=== PATIENT | female | born 1980 | race Hispanic/Latino ===

== ENCOUNTER 2018-10-17 13:17 | Emergency (ER) | payer BC ==
--- NOTE | 2018-10-17 14:42 | EDPHYS ---
Physician Documentation [facility] Name: Nahomy Trevino Age: 38 yrs Sex: Female : 1980 Arrival Date: 10/17/2018 Time: 13:19 Bed 10 Private MD: ED Physician Cezar Boykin HPI: 10/17 14:39 This 38 yrs old Female presents to ER via Ambulatory with complaints of Fever, kb Sore Throat, Ear Pain. 14:40 The patient presents with sore throat. The patient describes throat pain as constant. kb Onset: The symptoms/episode began/occurred last night. Severity of symptoms: At their worst the symptoms were moderate, in the emergency department the symptoms are unchanged. Modifying factors: The symptoms are alleviated by nothing, the symptoms are aggravated by swallowing, Patient's oral intake status: good Denies contact with similarly ill indivduals. Associated signs and symptoms: Pertinent positives: chills, earache, Sore throat Pertinent negatives chest pain, cough, diarrhea, dysphagia, fever, flu-like symptoms, headache, nausea, rhinorrhea, shortness of breath, vomiting. The patient has not experienced similar symptoms in the past. The patient has not recently seen a physician. 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 - Social history:: Smoking status: Patient/guardian denies using tobacco, Patient uses alcohol. - Ebola Screening: : Patient negative for fever greater than or equal to 101.5 degrees Fahrenheit, and additional compatible Ebola Virus Disease symptoms Patient denies exposure to infectious person Patient denies travel to an Ebola-affected area in the 21 days before illness onset. ROS: 14:41 Neck: Negative for injury, pain, and swelling, Cardiovascular: Negative for chest pain, kb palpitations, and edema, Respiratory: Negative for shortness of breath, cough, wheezing, and pleuritic chest pain, Abdomen/GI: Negative for abdominal pain, nausea, vomiting, diarrhea, and constipation, MS/Extremity: Negative for injury and deformity, Skin: Negative for injury, rash, and discoloration, Neuro: Negative for headache, weakness, numbness, tingling, and seizure. 14:41 Constitutional: Positive for chills, malaise, Negative for body aches, fatigue, fever, poor PO intake, weight loss. 14:41 ENT: Positive for ear pain, sore throat. Exam: 14:41 Constitutional: This is a well developed, well nourished patient who is awake, alert, kb and in no acute distress. Head/Face: Normocephalic, atraumatic. ENT: Nares patent. No nasal discharge, no septal abnormalities noted. Tympanic membranes are normal and external auditory canals are clear. Oropharynx with no redness, swelling, or masses, exudates, or evidence of obstruction, uvula midline. Mucous membranes moist. Neck: Trachea midline, no thyromegaly or masses palpated, and no cervical lymphadenopathy. Supple, full range of motion without nuchal rigidity, or vertebral point tenderness. No Meningismus. Chest/axilla: Normal chest wall appearance and motion. Nontender with no deformity. No lesions are appreciated. Cardiovascular: Regular rate and rhythm with a normal S1 and S2. No gallops, murmurs, or rubs. Normal PMI, no JVD. No pulse deficits. Respiratory: Lungs have equal breath sounds bilaterally, clear to auscultation and percussion. No rales, rhonchi or wheezes noted. No increased work of breathing, no retractions or nasal flaring. Abdomen/GI: Soft, non-tender, with normal bowel sounds. No distension or tympany. No guarding or rebound. No evidence of tenderness throughout. Skin: Warm, dry with normal turgor. Normal color with no rashes, no lesions, and no evidence of cellulitis. MS/ Extremity: Pulses equal, no cyanosis. Neurovascular intact. Full, normal range of motion. Neuro: Awake and alert, GCS 15, oriented to person, place, time, and situation. Cranial nerves II-XII grossly intact. Motor strength 5/5 in all extremities. Sensory grossly intact. Cerebellar exam normal. Normal gait. Vital Signs: 13:32 BP 124 / 85; Pulse 89; Resp 18; Temp 97.8(TE); Pulse Ox 99% on R/A; Weight 52.16 kg; hj Height 5 ft. 2 in. (157.48 cm); Pain 05/27; 13:32 Body Mass Index 21.03 (52.16 kg, 157.48 cm) hj MDM: 14:14 Patient medically screened. kb 14:40 Data reviewed: vital signs, nurses notes. Data interpreted: Pulse oximetry: on room air kb is 99 %. Interpretation: normal. Counseling: I had a detailed discussion with the patient and/or guardian regarding: the historical points, exam findings, and any diagnostic results supporting the discharge/admit diagnosis, lab results, the need for outpatient follow up, a family practitioner, to return to the emergency department if symptoms worsen or persist or if there are any questions or concerns that arise at home. 10/17 13:32 Order name: Flu; Complete Time: 14:15 kb 10/17 13:32 Order name: Strep; Complete Time: 14:15 kb 10/17 14:15 Order name: Throat Culture EDMS Administered Medications: No medications were administered Disposition: 10/17/18 14:42 Discharged to Home. Impression: Acute pharyngitis. - Condition is Stable. - Discharge Instructions: Pharyngitis, [id number], Viral Respiratory Infection, [id number]. - Medication Reconciliation Form, Thank You Letter, Antibiotic Education, Prescription Opioid Use, Work release form form. - Follow up: Emergency Department; When: As needed; Reason: Worsening of condition. Follow up: Private Physician; When: 2 - 3 days; Reason: Recheck today's complaints, Continuance of care, Re-evaluation by your physician. Addendum: 10/18/2018 16:44 Co-signature as Attending Physician, Cezar Boykin MD I agree with the assessment and k dr plan of care. Signatures: Dispatcher [employer] EDID June Daniels, BILL SORTER-C BILL SORTER-CkCezar Salas MD MD [facility] Charlotte Hill, ELOISE RN Jeff Raza, ELOISE RN Corrections: (The following items were deleted from the chart) 10/17 14:50 14:42 10/17/2018 14:42 Discharged to Home. Impression: Acute pharyngitis. Condition is iw Stable. Forms are Medication Reconciliation Form, Thank You Letter, Antibiotic Education, Prescription Opioid Use. Follow up: Emergency Department; When: As needed; Reason: Worsening of condition. Follow up: Private Physician; When: 2 - 3 days; Reason: Recheck today's complaints, Continuance of care, Re-evaluation by your physician. kb
--- NOTE | 2018-10-17 14:42 | ER ---
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 Transition of care: patient was not received from another setting of care. Onset of symptoms was October 17, 2018. Risk Assessment: Do you want to hurt yourself or someone else? Patient reports no desire to harm self or others. Initial Sepsis Screen: Does the patient meet any 2 criteria? Yes Does the patient have a suspected source of infection? No. Patient's initial sepsis screen is negative. Care prior to arrival: None. 13:30 Method Of Arrival: Ambulatory 13:30 Acuity: MARK 4 hj Triage Assessment: 13:31 General: Appears in no apparent distress. uncomfortable, Behavior is calm, cooperative, hj appropriate for age. Pain: Complains of pain in throat, ear, head Pain currently is 8 out of 10 on a pain scale. EENT: Reports pain when swallowing. 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 - Social history:: Smoking status: Patient/guardian denies using tobacco, Patient uses alcohol. - Ebola Screening: : Patient negative for fever greater than or equal to 101.5 degrees Fahrenheit, and additional compatible Ebola Virus Disease symptoms Patient denies exposure to infectious person Patient denies travel to an Ebola-affected area in the 21 days before illness onset. Screenin:31 Abuse screen: Denies threats or abuse. Denies injuries from another. Nutritional hj screening: No deficits noted. Tuberculosis screening: No symptoms or risk factors identified. Fall Risk None identified. Assessment: 13:32 Respiratory: Airway is patent Respiratory effort is even, unlabored, Respiratory hj pattern is regular, symmetrical, 13:35 EENT: Throat. hj Vital Signs: 13:32 BP 124 / 85; Pulse 89; Resp 18; Temp 97.8(TE); Pulse Ox 99% on R/A; Weight 52.16 kg; hj Height 5 ft. 2 in. (157.48 cm); Pain 8/10; 13:32 Body Mass Index 21.03 (52.16 kg, 157.48 cm) ED Course: 13:19 Patient arrived in ED. rg4 13:30 Triage completed. hj 13:32 June Daniels FNP-C is PHCP. kb 13:32 Cezar Boykin MD is Attending Physician. kb 13:32 Arm band placed on right wrist. hj 13:34 Strep Sent. hj 13:34 Flu Sent. hj 13:35 Patient has correct armband on for positive identification. Bed in low position. Call light in reach. Side rails up X 1. 14:08 Charlotte Hill, RN is Primary Nurse. iw Administered Medications: No medications were administered Outcome: 14:42 Discharge ordered by . kb 14:50 Patient left the ED. iw Signatures: June Daniels FNP-C FNP-Charlotte Gonzalez, RN RN iw Jeff Raza RN RN Nazia Barroso rg4 Corrections: (The following items were deleted from the chart) 13:35 13:32 Pulse 89bpm; Resp 18bpm; Pulse Ox 99% RA; Temp 97.8F Temporal; 52.16 kg; Height 5 hj ft. 2 in.; BMI: 21.0; Pain 8/10;
== END 2018-10-17 14:50 | disposition home or self-care (01) ==
LOC: ER 13:17
DX: J02.9 Acute pharyngitis, unspecified (principal)
CPT/HCPCS: 87070; 87081; 87804; 99282

== ENCOUNTER 2022-04-27 22:48 | Emergency (ER) | payer BC ==
--- NOTE | 2022-04-28 00:59 | ER ---
Nurse's Notes [facility] [place] [facility] Name: Nahomy Trevino Age: 41 yrs Sex: Female : 1980 Arrival Date: 04/27/2022 Time: 22:52 Bed Waiting Private MD: Diagnosis: Vital Signs: 04/28 00:19 BP 111 / 64; Pulse 115; Resp 19; Pulse Ox 100% on R/A; kd3 ED Course: 04/27 22:52 Patient arrived in ED. [id number] Administered Medications: No medications were administered Outcome: 04/28 00:59 Patient left the ED. kd3 Signatures: Zeinab Chambers Kyli RN RN kd3
[2022-04-28 01:18] VITALS: BP 111/64; O2SAT 100
--- OUTSIDE RECORDS SUMMARY | 2022-05-07 00:56 | XMS REPORT | Continuity of Care Document ---
:1980 Author Organization [facility] t Address [address] [place] [address] Care Team Providers Name Role Phone PAXTON BERGERON Primary Care Physician Unavailable CHARLEE MORALES Attending Clinician Unavailable Charlee Jacome Attending Clinician Celina NAVAS, T Attending Clinician Unavailable Raghu TUCKER Attending Clinician Unavailable Payers Payer Name Policy Type Policy Number Effective Date Expiration Date [facility] - [id number] 2021 00:00:00 OUT OF STATE Problems Condition Condition Condition Status Onset Resolution Last Treating Co mments Source Name Details Category Date Date Treatment Clinician Date Pap smear Pap smear Disease Active Overview: Univers of cervix of cervix 2-03 Formattin i ty of unsatisfac unsatisfac 00:00: g of this [place] tor tory 00 note Medical might be Branch different from the original. No ECC on pap; Repeat pap postpartu m Urinary Urinary Disease Active Univers frequency frequency 1-23 ity of 00:00: [place] 00 Medical Branch Encounter Encounter Disease Active Overview: Univers for for 5-21 Formattin ity of insertion insertion 00:00: g of this [place] or removal or removal 00 note Me dical of of might be Branch intrauteri intrauteri different ne ne from the contracept contracept original. jayson device jayson device Inserted 2012 Allergies, Adverse Reactions, Alerts Allergy Allergy Status Severity Reaction(s) Onset Inactive Treating Comm ents Source Name Type Date Date Clinician NO KNOWN Drug Active Univers ALLERGIE Class ity of S [facility] Social History Social Habit Start Date Stop Date Quantity Comments Source History SDOH University o f Alcohol Frequency [place] M edical Branch History SDOH University o f Alcohol Std [place] Medical Drinks Branch History SDOH University o f Alcohol Binge [place] Medic al Branch Exposure to 2022-04-23 2022-05-03 Not sure [facility]2 00:00:00 17:45:00 [facility] (event) Branch Alcohol intake 2022-04-28 2022-04-28 Current drinker Unive rsity of 00:00:00 00:00:00 of alcohol [facility] (finding) [place] Tobacco use and 2013-11-09 2013-11-09 Smokeless tobacco Un iversity of exposure 00:00:00 00:00:00 non-user [facility] Alcohol Comment 2013-11-09 2013-11-09 on occasion Universi ty of 00:00:00 00:00:00 [facility] Sex Assigned At [birth year] Universit y of 00:00:00 00:00:00 [facility] Smoking Status Start Date Stop Date Source Never smoked tobacco [facility] Medications Ordered Filled Start Stop Current Ordering Indication Dosage Frequency Signature Comments Components Source Medication Medication Date Date Medication? Clinician (SIG) Name Name ketorolac No 15mg 15 mg, Unive rs (TORADOL) 05-04 Slow IV ity of injection 04:30: 03:29 Push, [place] 15 mg 00 :00 ONCE, 1 Medical dose, On Branch [place] 05/03/22 at 2330, HECTOR NaCl 0.9% No 1000mL at 999 Uni vers (NS) bolus 05-04 mL/hr, ity of infusion 02:15: 02:51 1,000 mL, Ej as 1,000 mL 00 :00 IV Medical Infusion, [place] ONCE, 1 dose, On 05/03/22 at 2115, STAT acetaminoph No 1000mg 1,000 mg, Univers en 05-04 Oral, ity of (TYLENOL) 02:15: 02:30 ONCE, 1 [place] tablet 00 :00 dose, On Medical 1,000 mg [place] 05/03/22 at 2115, HECTOR levoFLOXaci 2021- No 500mg 500 mg, IV Univers n in D5W 05-04 Piggyback, ity of (LEVAQUIN) 02:15: 03:27 ONCE, 1 Ej as 500 mg/100 00 :00 dose, On Medic al mL [place] Piggyback 05/03/22 at 500 mg 2114, Administer over 60 Minutes, 100 mL
R maritza for Anti-Infec tive: Documented Infection< br>Documen sabrina Infection Site: Abdominal< br>Duratio n of Therapy: 7 days iopamidol 2021- No [id number] 65mL 65 mL, Univers (ISOVUE 05-04 Intravenou ity o f 370-500 mL) 00:48: 01:00 s, ONCE, 1 [place] injection 00 :00 dose, On Medica l 65 mL [place] Branch 05/03/22 at 2000, Routine NaCl 0.9% 2021- No 1000mL at 999 Uni vers (NS) bolus 05-04 mL/hr, ity of infusion 00:15: 01:46 1,000 mL, Ej as 1,000 mL 00 :00 IV Medical Infusion, Branch ONCE, 1 dose, On 05/03/22 at 1914, STAT ondansetron No 4mg 4 mg, Slow Univers (ZOFRAN 05-04 IV Push, ity of (PF)) 00:15: 23:31 ONCE, 1 [place] injection 4 00 :00 dose, On Medi doug mg [place] 05/03/22 at 191, HECTOR ondansetron 0 Yes [id number] 4mg Take 1 Univers 4 mg 7-17 tablet by ity of disintegrat 00:00: mouth [place] ing tablet 00 every 8 Medica l (eight) Branch hours as needed for Nausea and Vomiting (N/V). ibuprofen 0 Yes [id number] 600mg Take 1 U nivers 600 mg 7-17 tablet by ity of tablet 00:00: mouth [place] 00 every 6 Medical (six) Branch hours as needed for Pain (scale 4-6). levoFLOXaci 0 2021- Yes [id number] 750mg Take 1 Univers n 7-17 07-25 tablet by ity of (LEVAQUIN) 00:00: 04:59 mouth [place] 750 mg 00 :00 every 24 Medical tablet (twenty-fo Branch ur) hours for 7 days. benzonatate Yes [id number] 100mg Take 1 Univers 100 mg 1-03 capsule by ity of capsule 00:00: mouth 3 [place] 00 (three) Medical times Branch daily as needed for Cough. ondansetron 0 Yes [id number] 4mg Take 1 Univers (ZOFRAN) 4 1-03 tablet by ity of mg tablet 00:00: mouth [place] 00 every 8 Medical (eight) Branch hours as needed for Nausea and Vomiting (N/V) for up to 15 doses. benzonatate Yes [id number] 100mg Take 1 Univers 100 mg 1-03 capsule by ity of capsule 00:00: mouth 3 [place] 00 (three) Medical times Branch daily as needed for Cough. ondansetron Yes [id number] 4mg Take 1 Univers (ZOFRAN) 4 1-03 tablet by ity of mg tablet 00:00: mouth [place] 00 every 8 Medical (eight) Branch hours as needed for Nausea and Vomiting (N/V) for up to 15 doses. ibuprofen 2021- No [id number] 600mg Take 1 Univers 600 mg 1-03 02-03 tablet by ity of tablet 00:00: 05:59 mouth [place] 00 :00 every 6 Medical (six) Branch hours as needed for Pain (scale 4-6) for up to 30 days. Immunizations Ordered Filled Immunization Date Status Comments [facility] e Immunization Name Name TDAP 2011-04-30 Completed University 00:00:00 [facility] TDAP 2011-04-30 Completed [facility] 00:00:00 [facility] Vital Signs Vital Name Observation Time Observation Value Comments Source Systolic blood 2022-05-04 93 mm[Hg] erp aware, pt University o f pressure 04:58:00 asymptomatic, [facility] stable for DC Branch Diastolic blood 2022-05-04 57 mm[Hg] erp aware, pt University of pressure 04:58:00 asymptomatic, [facility] stable for DC Branch Heart rate 2022-05-04 83 /min University 04:58:00 [facility] Respiratory rate 2022-05-04 18 /min [facility] 04:58:00 [facility] Oxygen saturation 2022-05-04 98 /min [facility] in Arterial blood 04:58:00 [facility] by Pulse oximetry [place] Body temperature 2022-05-03 37.44 Sharron [facility] 22:49:00 [facility] Body height 2022-05-03 154.9 cm [facility] 22:49:00 [facility] Body weight 2022-05-03 59.421 kg [facility] 22:49:00 [facility] BMI 2022-05-03 24.75 kg/m2 [facility] 22:49:00 [facility] Procedures Procedure Date / Time Performing Clinician Source Performed URINE DRUG (IMMUNOASSAY) 2022-05-04 02:51:[address] [facility] SCREEN COVID-19 (ID NOW RAPID 2022-05-04 01:18:00 Jackelyn Morales [facility] TESTING) [facility] CT ABDOMEN PELVIS W 2022-05-04 00:49:00 Jackelyn Morales [facility] CONTRAST [facility] POCT TEST 2022-05-03 23:40:00 Jackelyn Morales [facility] LIPASE 2022-05-03 23:29:00 Jackelyn Morales [facility] MAGNESIUM 2022-05-03 23:29:00 Jackelyn Morales [facility] COMP. METABOLIC PANEL 2022-05-03 23:29:00 Jackelyn Morales [facility] ([id number]) [facility] CBC WITH DIFF 2022-05-03 23:29:00 Jackelyn Morales [facility] URINALYSIS 2022-05-03 23:29:00 Jackelyn Morales [facility] CONSENT/REFUSAL FOR 2022-05-03 22:32:55 Doctor Unassigned, No Un [facility] DIAGNOSIS AND TREATMENT Name Medical Branch Encounters Start End Encounter Admission Attending Care Care Encounter Source Date/Time Date/Time Type Type Clinicians Facility Department ID 2022-05-03 2022-05-04 Emergency X Jackelyn MORALES [facility] ERT [id number] Univers 17:51:00 00:44:00 ity [facility] 2022-05-03 2022-05-04 Emergency [place], Jackelyn [facility] [id number] Univers 17:51:00 00:44:00 Charlee BEBE [id number] i ty [facility] [id number] [place] [id number] [facility] 084 Branch 2021-10-21 2021-10-21 Letter AGUSTINA Patrick [id number] Univers 00:00:00 00:00:00 (Out) Minna Barakat AYSHA [id number] it y [facility] [id number] Ej as [id number] [facility] 019 Branch 2021-10-20 2021-10-20 Emergency X CAITLIN, [facility] ERT [id number] Univers 18:56:00 19:52:00 MAGGIE [facility] Results Test Description Test Time Test Comments Results Result Comments Source POCT TEST 2022-05-03 23:40:00 Test Item Value Reference Range Interpretation Comme nts POCT PREG (test code = 1605) negative On board controls acceptable with C Line (test code = 3574) present POCT PREG LOT # (test code = 3575) [id number] POCT PREG TEST DATE (test code = 3576) 08/17/2023 Lab Interpretation (test code = 11660-5) Normal [facility]
== END 2022-04-28 00:59 | disposition left against medical advice (07) ==
LOC: ER 22:48
DX: Z02.9 Encounter for administrative examinations, unspecified (principal)

== ENCOUNTER 2024-05-29 15:10 | Emergency (ER) | payer OTHER ==
--- OUTSIDE RECORDS SUMMARY | 2024-05-29 15:14 | XMS REPORT | Continuity of Care Document ---
Author Name Unknown Address [address] [facility] [address] [place] [address] [facility] thconnect Address [address] [place] [place] [address] Care Team Providers Care Networking Engineer Name Role Phone SCARLETT BERGERON Primary Care Physician ABBEY Hahn Attending Clinician Unavailable MAYO BYRNES Attending Clinician Unavailable Mayo Byrnes MD Attending Clinician [phone] [email or web address] Attending Clinician UnavailAJITH Muse Attending Clinician Unavailable Alirio BRACERAjith Attending Clinician [phone] Doctor Unassigned, Aldie Attending Clinician U janieailJackelyn Dobson Attending Clinician Unavailable Jackelyn Jacome Attending Clinician [phone] Celina RN, Minna Barakat Attending Clinician UnavailMAGGIE Rawls Attending Clinician Unavailable ABBEY TAVERA Admitting Clinician Unavailable [email or web address] Admitting Clinician Unavaila Jackelyn Ervin Admitting Clinician Unavailable Payers Payer Name Policy Type Policy Number Effective Date Expirati on Date Source VANCE Cervantes/ GALEN HO [id number] 2023 00:00:00 [employer] [place] [id number] 2021 00:00:00 Problems Condition Name Condition Details Condition Category Status Onset Date Resolution Date Last Treatment Date Treating Clinician Comments Source Pap smear of cervix unsatisfac tory Pap smear of cervix unsatisfac tory Disease Active 11-20 00:00: 00 Overview: Formattin g of this note might be different from the original. No ECC on pap; Repeat pap postpartu m [facility] Urinary frequency Urinary frequency Disease Active 11-09 00:00: 00 [facility] Encounter for insertion or removal of intrauteri ne contracept jayson device Encounter for insertion or removal of intrauteri ne contracept jayson device Disease Active 03-07 00:00: 00 Overview: Formattin g of this note might be different from the original. Inserted 2012 [facility] Dysuria Dysuria Disease Resolve d 01-24 00:00: 00 2013-11-09 00:00:00 2013-11-09 10:41:48 [facility] Allergies, Adverse Reactions, Alerts Allergy Name Allergy Type Status Severity Reaction(s) Onset Date Inactive Date Treating Clinician Comments Source NO KNOWN ALLERGIE S Drug Class Active [facility] Social History Social Habit Start Date Stop Date Quantity Comments Source Sexual orientation U [facility] History SDOH Alcohol Frequency [facility] History SDOH Alcohol Std Drinks [facility] History SDOH Alcohol Binge [facility] History of Social function 2024-04-26 00:00:00 2024-04-26 00:00:00 [facility] Alcoholic beverage intake 2024-04-26 00:00:00 2024-04-26 00:00:00 Current drinker of alcohol (finding) [facility] Alcohol intake 2024-02-04 00:00:00 2024-02-04 00:00:00 Current drinker of alcohol (finding) [facility] Exposure to SARS-CoV-2 (event) 2022-08-06 00:00:00 2022-08-16 22:36:00 Not sure [facility] Tobacco use and exposure 2013-11-09 00:00:00 2013-11-09 00:00:00 Smokeless tobacco non-user [facility] Alcohol Comment 2013-11-09 00:00:00 2013-11-09 00:00:00 on occasion [facility] Sex assigned at 1980 00:00:00 1980 00:00:00 [facility] Smoking Status Start Date Stop Date Source Never smoked tobacco [facility] Medications Ordered Medication Name Filled Medication Name Start Date Stop Date Current Medication? Ordering Clinician Indication Dosage Frequency Signature (SIG) Comments Components Source cefTRIAXone (ROCEPHIN) 350 mg/mL in Lidocaine 1 % injection 1,000 mg 04-26 23:45: 00 04-26 23:20 :00 No 1000mg 1,000 mg, Intramuscu lar, ONCE, 1 dose, On Wed04/26/24 at 1845, HECTOR, Reason for Anti-Infec tive: Empiric Therapy for Suspected Infection, Empiric Therapy Site: HEENT, Duration of therapy: Once (ED) [facility] ibuprofen (IBU) tablet 600 mg 04-26 23:30: 00 04-26 22:50 :00 No 600mg 600 mg, Oral, ONCE, 1 dose, On Wed04/26/24 at 1830, HECTOR [facility] acetaminoph en (TYLENOL) tablet 650 mg 04-26 23:30: 00 04-26 22:50 :00 No 650mg 650 mg, Oral, ONCE, 1 dose, On Wed04/26/24 at 1830, HECTOR [facility] ibuprofen 800 mg tablet 04-26 00:00: 00 Yes [id number] 800mg Take 1 tablet by mouth every 6 (six) hours as needed for Pain (scale 4-6) or Temp > 38.5 C. [facility] albuterol 90 mcg/actuati on inhaler 04-26 00:00: 00 Yes [id number] 2{puff} Inhale 2 Puffs every 4 (four) hours as needed for Wheezing or Shortness of Breath. [facility] bromphenira mine-pseudo ephedrine-D M (BROMFED DM) 2-30-10 mg/5 mL syrup 04-26 00:00: 00 Yes [id number] 5mL Take 5 mL by mouth 4 (four) times daily as needed for Congestion /Allergies . [facility] dexamethaso ne sod phos PF injection 10 mg 02-03 22:30: 00 02-03 22:26 :00 No 10mg 10 mg, Oral, ONCE, 1 dose, On Wed02/04/24 at 1730, 1 mL [facility] amoxicillin 500 mg capsule 02-03 00:00: 00 02-11 04:59 :00 No [id number] 500mg Take 1 capsule by mouth in the morning and 1 capsule in the evening. Do all this for 7 days. [facility] methylPREDN ISolone 4 mg tablets 2021-10 00:00: 00 Yes [id number] Take by mouth SEE-INSTRU CTIONS. follow package directions [facility] benzonatate 100 mg capsule 2021-10 00:00: 00 Yes [id number] 100mg Take 1 capsule by mouth 3 (three) times daily as needed for Cough. [facility] ketorolac (TORADOL) injection 15 mg 05-04 04:30: 00 05-04 03:29 :00 No 15mg 15 mg, Slow IV Push, ONCE, 1 dose, On 05/03/22 at 2330, HECTOR [facility] NaCl 0.9% (NS) bolus infusion 1,000 mL 05-04 02:15: 00 05-04 02:51 :00 No 1000mL at 999 mL/hr, 1,000 mL, IV Infusion, ONCE, 1 dose, On 05/03/22 at 2115, STAT [facility] acetaminoph en (TYLENOL) tablet 1,000 mg 05-04 02:15: 00 05-04 02:30 :00 No 1000mg 1,000 mg, Oral, ONCE, 1 dose, On 05/03/22 at 2115, HECTRO [facility] levoFLOXaci n in D5W (LEVAQUIN) 500 mg/100 mL Piggyback 500 mg 05-04 02:15: 00 05-04 03:27 :00 No 500mg 500 mg, IV Piggyback, ONCE, 1 dose, On Wed05/03/22 at 2115, Administer over 60 Minutes, 100 mL
Reas on for Anti-Infec tive: Documented Infection< br>Documen sabrina Infection Site: Abdominal< br>Duratio n of Therapy: 7 days [facility] iopamidol (ISOVUE 370-500 mL) injection 65 mL 05-04 00:48: 00 05-04 01:00 :00 No [id number] 65mL 65 mL, Intravenou s, ONCE, 1 dose, On Wed05/03/22 at 2000, Routine [facility] NaCl 0.9% (NS) bolus infusion 1,000 mL 05-04 00:15: 00 05-04 01:46 :00 No 1000mL at 999 mL/hr, 1,000 mL, IV Infusion, ONCE, 1 dose, On Wed05/03/22 at 1915, STAT [facility] ondansetron (ZOFRAN (PF)) injection 4 mg 05-04 00:15: 00 05-03 23:31 :00 No 4mg 4 mg, Slow IV Push, ONCE, 1 dose, On Wed05/03/22 at 1915, HECTOR [facility] ondansetron 4 mg disintegrat ing tablet 05-03 00:00: 00 Yes [id number] 4mg Take 1 tablet by mouth every 8 (eight) hours as needed for Nausea and Vomiting (N/V). [facility] ibuprofen 600 mg tablet 05-03 00:00: 00 08-17 00:00 :00 No [id number] 600mg Take 1 tablet by mouth every 6 (six) hours as needed for Pain (scale 4-6). [facility] levoFLOXaci n (LEVAQUIN) 750 mg tablet 05-03 00:00: 00 05-11 04:59 :00 No [id number] 750mg Take 1 tablet by mouth every 24 (twenty-fo ur) hours for 7 days. [facility] benzonatate 100 mg capsule 10-20 00:00: 00 08-17 00:00 :00 No [id number] 100mg Take 1 capsule by mouth 3 (three) times daily as needed for Cough. [facility] ondansetron (ZOFRAN) 4 mg tablet 10-20 00:00: 00 08-17 00:00 :00 No [id number] 4mg Take 1 tablet by mouth every 8 (eight) hours as needed for Nausea and Vomiting (N/V) for up to 15 doses. [facility] ibuprofen 600 mg tablet 10-20 00:00: 00 11-20 05:59 :00 No [id number] 600mg Take 1 tablet by mouth every 6 (six) hours as needed for Pain (scale 4-6) for up to 30 days. [facility] Immunizations Ordered Immunization Name Filled Immunization Name Date Status Comments Source TDAP 2011-04-30 00:00:00 Completed [facility] TDAP 2011-04-30 00:00:00 Completed [facility] TDAP 2011-04-30 00:00:00 Completed [facility] TDAP 2011-04-30 00:00:00 Completed [facility] TDAP Unknown Completed [facility] TDAP Unknown Completed [facility] Vital Signs Vital Name Observation Time Observation Value Comments S ource Systolic blood pressure 2024-04-26 22:35:00 125 mm[Hg] [facility] Diastolic blood pressure 2024-04-26 22:35:00 89 mm[Hg] [facility] Heart rate 2024-04-26 22:35:00 86 /min [facility] Body temperature 2024-04-26 22:35:00 37.17 Sharron [facility] Respiratory rate 2024-04-26 22:35:00 16 /min [facility] Body height 2024-04-26 22:35:00 157.5 cm [facility] Body weight 2024-04-26 22:35:00 61.236 kg [facility] BMI 2024-04-26 22:35:00 24.69 kg/m2 [facility] Oxygen saturation in Arterial blood by Pulse oximetry 2024-04-26 22:35:00 98 /min [facility] Systolic blood pressure 2024-02-04 21:27:00 121 mm[Hg] [facility] Diastolic blood pressure 2024-02-04 21:27:00 83 mm[Hg] [facility] Heart rate 2024-02-04 21:27:00 63 /min [facility] Body temperature 2024-02-04 21:27:00 37.28 Sharron [facility] Respiratory rate 2024-02-04 21:27:00 16 /min [facility] Body height 2024-02-04 21:27:00 154.9 cm [facility] Body weight 2024-02-04 21:27:00 61.236 kg [facility] BMI 2024-02-04 21:27:00 25.51 kg/m2 [facility] Oxygen saturation in Arterial blood by Pulse oximetry 2024-02-04 21:27:00 100 /min [facility] Body weight 2022-08-17 03:39:00 61.236 kg [facility] BMI 2022-08-17 03:39:00 25.51 kg/m2 [facility] Oxygen saturation in Arterial blood by Pulse oximetry 2022-08-17 03:39:00 98 /min [facility] Systolic blood pressure 2022-08-17 03:39:00 135 mm[Hg] [facility] Diastolic blood pressure 2022-08-17 03:39:00 92 mm[Hg] [facility] Heart rate 2022-08-17 03:39:00 78 /min [facility] Body temperature 2022-08-17 03:39:00 37.11 Sharron [facility] Respiratory rate 2022-08-17 03:39:00 18 /min [facility] Body height 2022-08-17 03:39:00 154.9 cm [facility] Systolic blood pressure 2022-05-04 04:58:00 93 mm[Hg] erp aware, pt asymptomatic, stable for DC [facility] Diastolic blood pressure 2022-05-04 04:58:00 57 mm[Hg] erp aware, pt asymptomatic, stable for DC [facility] Heart rate 2022-05-04 04:58:00 83 /min [facility] Respiratory rate 2022-05-04 04:58:00 18 /min [facility] Oxygen saturation in Arterial blood by Pulse oximetry 2022-05-04 04:58:00 98 /min [facility] Body temperature 2022-05-03 22:49:00 37.44 Sharron [facility] Body height 2022-05-03 22:49:00 154.9 cm [facility] Body weight 2022-05-03 22:49:00 59.421 kg [facility] BMI 2022-05-03 22:49:00 24.75 kg/m2 [facility] Procedures Procedure Date / Time Performed Performing Clinician Source RAPID STREP SCREEN FOR GROUP A 2024-04-26 22:49:00 Abbey Tavera [facility] INFLUENZA A/B RSV COVID NAAT 2024-04-26 22:49:00 Ayse Abbey [facility] XR CHEST 1 VW 2024-04-26 22:48:22 Abbey Tavera [facility] URINALYSIS 2024-04-26 22:47:00 Abbey Tavera [facility] RAPID STREP SCREEN FOR GROUP A 2024-02-04 21:31:00 Mayo Byrnes [facility] RAPID STREP SCREEN FOR GROUP A 2022-08-17 03:59:00 Ajith Vasquez [facility] RAPID INFLUENZA A/B 2022-08-17 03:59:00 Ajith Vasquez [facility] COVID-19 (ID NOW RAPID TESTING) 2022-08-17 03:59:00 Ajith Vasquez [facility] NOTICE OF PRIVACY PRACTICES 2022-08-17 03:29:05 Doctor Unassigned, Aldie [facility] CONSENT/REFUSAL FOR DIAGNOSIS AND TREATMENT 2022-08-17 03:28:50 Doctor Unassigned, Aldie [facility] URINE DRUG (IMMUNOASSAY) - COMPREHENSIVE DRUG SCREEN 2022-05-04 02:51:00 Jackelyn Morales [facility] COVID-19 (ID NOW RAPID TESTING) 2022-05-04 01:18:00 Jackelyn Morales [facility] CT ABDOMEN PELVIS W CONTRAST 2022-05-04 00:49:00 Jackelyn Morales [facility] POCT TEST 2022-05-03 23:40:00 Jackelyn Morales e [facility] LIPASE 2022-05-03 23:29:00 Jackelyn Morales [facility] MAGNESIUM 2022-05-03 23:29:00 Jackelyn Morales [facility] COMP. METABOLIC PANEL ([id number]) 2022-05-03 23:29:00 Jackelyn Morales [facility] CBC WITH DIFF 2022-05-03 23:29:00 [facility] 2022-05-03 23:29:00 Jackelyn Morales [facility] CONSENT/REFUSAL FOR DIAGNOSIS AND TREATMENT 2022-05-03 22:32:55 Doctor Unassigned, Aldie [facility] Encounters Start Date/Time End Date/Time Encounter Type Admission Type Attending [facility] Care Facility Care Department Encounter ID Source 2024-04-26 17:36:00 2024-04-26 19:47:00 Emergency X ABBEY TAVERA [facility] ERT [id number] [facility] 2024-04-26 17:36:00 2024-04-26 19:47:00 Emergency Abbey Tavera [facility] [id number] [facility] 2024-02-04 16:29:00 2024-02-04 18:10:00 Emergency X MAYO BYRNES [facility] ERT [id number] [facility] 2024-02-04 16:29:00 2024-02-04 18:10:00 Emergency Mayo Byrnes [facility] [id number] [id number] [facility] 2023-11-29 00:00:00 2023-11-29 00:00:00 Outpatient GC_[email or web address] diyala_S PRIV PRIV [id number] [facility] 2023-08-17 00:00:00 2023-08-17 00:00:00 Outpatient GC_[email or web address] diyala_S PRIV PRIV [id number] [facility] 2022-08-16 22:43:00 2022-08-17 00:22:00 Emergency X AJITH VASQUEZ [facility] ERT [id number] [facility] 2022-08-16 22:43:00 2022-08-17 00:22:00 Emergency Ajith Vasquez Parth [facility] [id number] [id number] [facility] 2022-08-16 00:00:00 2022-08-16 00:00:00 Orders Only Doctor Unassigned, Aldie [facility] [id number] [id number] 4.2.7.2.686 [id number] [facility] 2022-05-03 17:51:00 2022-05-04 00:44:00 Emergency X Jackelyn MORALES [facility] ERT [id number] [facility] 2022-05-03 17:51:00 2022-05-04 00:44:00 Emergency Jackelyn Morales [facility] [id number] [id number] [id number] [id number] [facility] 2021-10-21 00:00:00 2021-10-21 00:00:00 Letter (Out) Minna Patrick [facility] [id number] [id number] [id number] [id number] [facility] 2021-10-20 18:56:00 2021-10-20 19:52:00 Emergency X MAGGIE TUCKER [facility] ERT [id number] [facility] Results Test Description Test Time Test Comments Results Resul t Comments Source XR CHEST 1 VW 2024-04-17 0 23:05:17 EXAM: XR CHEST 1 VW HISTORY: 43 years-old Female; Provided indication: cough congestion . TECHNIQUE: Single frontal view of the chest. COMPARISON: CT abdomen obtained on 05/03/2022 FINDINGS: The lungs are well-expanded. No focal consolidation or pleural abnormalityis visualized. The cardiomediastinal silhouette is normal in size accounting fortechnique. Small calcified left hilar lymph nodes are noted. No focal osseous lesions or acute osseous findings are detected. [facility] Notes Date/Time Note Provider Source 2024-04-26 19:45:38 Pt dc'd home ambulatory. Pt v/u of dc instructions. Rania Alves RN [facility] 2024-04-26 17:29:00 Patient states: "My daughter had covid. Last night I was feeling sick. I've been sneezing, coughing, congested. My head is throbbing. I didn't check my temperature I just feel hot. Nothing taken for headache." Amee Liang RN [facility] 2024-04-26 17:27:37 Called 2x no answer Catrina Franklin RN [facility] 2024-02-04 17:30:03 Patient dc home. Follow up with pcp. Take rx as prescribed. Verbalized understanding. Signed paper work. Glen Arnold RN [facility] 2024-02-04 16:26:48 Patient states: "I have a sore throat. It just started yesterday. My daughter has strep and I have been around her" Loraine Simms RN [facility] 2024-02-04 16:18:00 [facility] Emergency Department Note Demographics Patient Name: Citlali Shepherd Date of : 1980 43 year old Treatment Room: [facility] ED [facility] Primary Care Physician: Scarlett Baron [facility] Patient Escorted by: Self [9] Mode of Arrival: Personal means [1] EMS Treatment Prior to ED Arrival: ED Events Date/Time Event User Comments 02/04/24 1630 Medical Screening Begins MAYO BYRNES MD -- 02/04/24 1630 First Provider Evaluation MAYO BYRNES MD -- Chief complaint Chief Complaint Patient presents with Sore Throat ED Triage Notes Loraine Simms RN 02/04/2024 16:27 Patient states: "I have a sore throat. It just started yesterday. My daughter has strep and I have been around her" Chief Complaint Patient presents with Sore Throat History of present illness HPI 43 yo woman comes to the ED complaining of sore throat for the last days. Her daughter with strep throat. Denies fever, chills, nausea or vomiting. BP 121/83 | Pulse 63 | Temp 37.3 ?C (99.1 ?F) (Oral) | Resp 16 | Ht 1.549 m (5' 1") | Wt 61.2 kg (135 lb) | SpO2 100% | BMI 25.51 kg/m? Past Medical and Social History Past Medical History: Diagnosis Date Menstrual disorder 09/2011 spotting off and on since Mirena insertion Social History Tobacco Use Smoking status: Never Smokeless tobacco: Never Substance Use Topics Alcohol use: Yes Comment: on occasion Drug use: No Past Surgical History History reviewed. No pertinent surgical history. Medications Medications - No data to display Allergies No Known Allergies Review of Systems Review of Systems Constitutional: Negative. HENT: Positive for sore throat. Eyes: Negative. Respiratory: Negative. Cardiovascular: Negative. Gastrointestinal: Negative. Genitourinary: Negative. Musculoskeletal: Negative. Skin: Negative. Neurological: Negative. Psychiatric/Behavioral: Negative. Endocrine: Endocrine negative Physical Exam BP 121/83 | Pulse 63 | Temp 37.3 ?C (99.1 ?F) (Oral) | Resp 16 | Ht 1.549 m (5' 1") | Wt 61.2 kg (135 lb) | SpO2 100% | BMI 25.51 kg/m? Physical Exam Vitals and nursing note reviewed. Constitutional: General: She is not in acute distress. Appearance: She is well-developed and normal weight. She is not ill-appearing. HENT: Head: Normocephalic and atraumatic. Right Ear: External ear normal. Left Ear: External ear normal. Nose: Nose normal. No congestion or rhinorrhea. Mouth/Throat: Pharynx: Posterior oropharyngeal erythema present. No oropharyngeal exudate. Eyes: General: Right eye: No discharge. Left eye: No discharge. Conjunctiva/sclera: Conjunctivae normal. Pupils: Pupils are equal, round, and reactive to light. Cardiovascular: Rate and Rhythm: Normal rate and regular rhythm. Heart sounds: Normal heart sounds. No murmur heard. No friction rub. Pulmonary: Effort: Pulmonary effort is normal. No respiratory distress. Breath sounds: Normal breath sounds. No stridor. No wheezing or rhonchi. Abdominal: General: Bowel sounds are normal. There is no distension. Palpations: Abdomen is soft. There is no mass. Tenderness: There is no abdominal tenderness. Hernia: No hernia is present. Musculoskeletal: General: No swelling, tenderness, deformity or signs of injury. Normal range of motion. Cervical back: Normal range of motion and neck supple. No rigidity or tenderness. Skin: General: Skin is warm. Capillary Refill: Capillary refill takes less than 2 seconds. Coloration: Skin is not jaundiced or pale. Findings: No bruising or erythema. Neurological: General: No focal deficit present. Mental Status: She is alert and oriented to person, place, and time. Cranial Nerves: No cranial nerve deficit. Sensory: No sensory deficit. Motor: No weakness. Coordination: Coordination normal. Psychiatric: Mood and Affect: Mood normal. Behavior: Behavior normal. Thought Content: Thought content normal. Judgment: Judgment normal. Labs and Studies Lab Results RAPID STREP SCREEN FOR GROUP A - Normal Result Value Ref Range Molecular Strep Negative Negative THROAT CULTURE No orders to display Orders and Treatments Orders Placed This Encounter Procedures Rapid Strep Screen For Group A Throat Culture No orders of the defined types were placed in this encounter. Patient's Medications START taking these medications No medications on file CONTINUE taking these medications which have NOT CHANGED BENZONATATE 100 MG CAPSULE Take 1 capsule by mouth 3 (three) times daily as needed for Cough. METHYLPREDNISOLONE 4 MG TABLETS Take by mouth SEE-INSTRUCTIONS. follow package directions ONDANSETRON 4 MG DISINTEGRATING TABLET Take 1 tablet by mouth every 8 (eight) hours as needed for Nausea and Vomiting (N/V). START taking Modified Medications as Prescribed No medications on file STOP taking these medications No medications on file Procedures Procedures Evidence Care MDM & Notes Patient was evaluated for an emergency medical condition related to Sore Throat . History and/or review of systems is limited by:History limited: None. Medical Decision Making 43 yo woman comes to the ED complaining of sore throat for the last days. Her daughter with strep throat. Denies fever, chills, nausea or vomiting. BP 121/83 | Pulse 63 | Temp 37.3 ?C (99.1 ?F) (Oral) | Resp 16 | Ht 1.549 m (5' 1") | Wt 61.2 kg (135 lb) | SpO2 100% | BMI 25.51 kg/m? DDx include but not limited to: 1. Sore throat 2. Step throat 3. Viral pharyngitis Plan: strep throat Problems Addressed: Sore throat: acute illness or injury Amount and/or Complexity of Data Reviewed Labs: ordered. Details: Negative strep Discussion of management or test interpretation with external provider(s): Dose of decadron Suspect strep pending cultures. Start amoxicillin Diagnosis/Impression as of 02/04/24 6895 Sore throat Case discussed with: none Barriers & Social Determinants of Healthcare: none Limitations to patient care and compliance: none. History, physical exam findings, results of visit, differential diagnosis, medication regimens and plan of future care have been considered. Additional MDM may be found in the ED course. Differential diagnosis considered and final disposition made based on information gathered during evaluation and may not be completely ruled out or specifically listed. Vital signs were rechecked before final disposition and determined to be stable. Diagnoses ICD-10-CM 1. Sore throat J02.9 Disposition and Condition ED Disposition ED Disposition Disch - Home Condition Stable Comment -- Patient's Medications START taking these medications No medications on file CONTINUE taking these medications which have NOT CHANGED BENZONATATE 100 MG CAPSULE Take 1 capsule by mouth 3 (three) times daily as needed for Cough. METHYLPREDNISOLONE 4 MG TABLETS Take by mouth SEE-INSTRUCTIONS. follow package directions ONDANSETRON 4 MG DISINTEGRATING TABLET Take 1 tablet by mouth every 8 (eight) hours as needed for Nausea and Vomiting (N/V). START taking Modified Medications as Prescribed No medications on file STOP taking these medications No medications on file Dragon Dictation Software is used frequently and may produce errors. Promptly contact for obvious discrepancies. Mayo Byrnes MD, FACEP, FAAEM [facility], [facility] #[id number] Mayo Byrnes MD 02/04/24 [id number] [facility]
--- NOTE | 2024-05-29 16:28 | RAD REPORT ---
EXAM DESCRIPTION: CT - Head C Spine Mpr Wo Con - 05/29/2024 4:00 pm CLINICAL HISTORY: Head and neck injury status post fall. Head and neck pain COMPARISON: None. TECHNIQUE: Computed axial tomography of the head and cervical spine was obtained. Sagittal and coronal reconstruction was performed. All CT scans are performed using dose optimization technique as appropriate and may include automated exposure control or mA/KV adjustment according to patient size. FINDINGS: An intracranial bleed is not seen. The ventricles are normal in caliber. No significant hypodensity within the brain. An extra-axial fluid collection is not noted. Fluid within the visualized sinuses and mastoids is not seen A cervical fracture is not visualized. No dislocation is noted. IMPRESSION: No acute intracranial abnormality is seen. A cervical fracture is not visualized. If the patient continues to have symptoms to suggest intracranial /spinal cord pathology then MRI wou ld be recommended
[2024-05-29] MEDS ORDERED: TDAP (DIPHTH,PERTUSS(ACELL),TET VAC) 0.5 ML VIAL IMVAC ONE (18:19)
[2024-05-29] MEDS ORDERED: LIDOCAINE 1% MPF 5 ML VIAL ONE (18:19)
--- NOTE | 2024-05-29 18:43 | ER ---
Nurse's Notes [facility] Name: Nahomy Trevino Age: 44 yrs Sex: Female : 1980 Arrival Date: 05/29/2024 Time: 15:10 Bed 5 Private MD: Diagnosis: Laceration without foreign body of scalp Presentation: 05/29 15:24 Chief complaint: Patient states: Slipped and fell in the shower 30 minutes [employer]. Pt has cm10 laceration to the back of her head, bleeding controlled. Pt denies any LOC, not on blood thinners. PT reporting head pain. Coronavirus screen: Client denies travel out of the [place] in the last 14 days. At this time, the client does not indicate any symptoms associated with coronavirus-19. Ebola Screen: Patient denies travel to an Ebola-affected area in the 21 days before illness onset. No symptoms or risks identified at this time. Initial Sepsis Screen: Does the patient meet any 2 criteria? No. Patient's initial sepsis screen is negative. Does the patient have a suspected source of infection? No. Patient's initial sepsis screen is negative. Risk Assessment: Do you want to hurt yourself or someone else? Patient reports no desire to harm self or others. Onset of symptoms was May 29, 2024. 15:24 Method Of Arrival: Wheelchair cm10 15:24 Acuity: MARK 3 cm10 Triage Assessment: 15:26 General: Appears in no apparent distress. comfortable, Behavior is calm, cooperative. cm10 Neuro: No deficits noted. Level of Consciousness is awake, alert, obeys commands, Oriented to person, place, time, situation, Appropriate for age. Respiratory: No deficits noted. Airway is patent Respiratory effort is even, unlabored, Respiratory pattern is regular, symmetrical. Injury Description: Laceration sustained to occipital area is clean, 0.5 to 2.5 cm long, not bleeding. Historical: - Allergies: 15:25 No Known Allergies; cm10 - Home Meds: 15:25 None [Active]; cm10 - PMHx: 15:25 None; cm10 - PSHx: 15:25 None; cm10 - Immunization history:: Adult Immunizations up to date, Last tetanus immunization: unknown. - Infectious Disease History:: Denies. - Social history:: Smoking status: Patient denies any tobacco usage or history of. - Family history:: not pertinent. Screenin:25 [facility] ED Fall Risk Assessment (Adult) History of falling in the last 3 months, rs5 including since admission Yes- single mechanical fall (1 pt) Confusion or Disorientation No (0 pts) Intoxicated or Sedated No (0 pts) Impaired Gait No (0 pts) Mobility Assist Device Used No (0 pt) Altered Elimination No (0 pt) Score/Fall Risk Level 0 - 2 = Low Risk Oriented to surroundings, Maintained a safe environment. Abuse screen: Denies threats or abuse. Nutritional screening: No deficits noted. Tuberculosis screening: No symptoms or risk factors identified. Assessment: 18:29 Reassessment: pt arrived in room . rs5 18:30 General: Appears in no apparent distress. comfortable, Behavior is calm, cooperative. rs5 Pain: Denies pain. Neuro: Level of Consciousness is awake, alert, obeys commands, Oriented to person, place, time, situation. Cardiovascular: Patient's skin is warm and dry. Respiratory: Airway is patent Respiratory effort is even, unlabored, Respiratory pattern is regular, symmetrical. GI: Abdomen is round non-distended, Abd is soft and non tender X 4 quads. : No signs and/or symptoms were reported regarding the genitourinary system. EENT: No signs and/or symptoms were reported regarding the EENT system. Derm: Skin is intact, 1/2 inch laceration noted to back of head, no active bleeding noted Skin is pink, warm \T\ dry. 18:30 Musculoskeletal: Range of motion: intact in all extremities. rs5 18:35 Reassessment: to bedside, laceration to back of head cleaned with Hibiclens and normal rs5 saline, pt tolerated procedure well . Vital Signs: 15:24 BP 127 / 87; Pulse 79; Resp 16; Temp 98.8(O); Pulse Ox 97% on R/A; Weight 56.7 kg; cm10 Height 5 ft. 1 in. ; Pain 10/10; 18:47 BP 128 / 80; Pulse 71; Resp 18; Pulse Ox 98% on R/A; rs5 15:24 Body Mass Index 23.62 (56.70 kg, 154.94 cm) cm10 15:24 Pain Scale: Adult cm10 ED Course: 15:13 Patient arrived in ED. im 15:22 [place], Chato, MD is Attending Physician. rt 15:25 Triage completed. cm10 15:26 Arm band placed on Patient placed in waiting room. cm10 16:01 CT Head C Spine In Process Unspecified. EDMS 18:15 Pa Banegas, RN is Primary Nurse. rs5 18:25 Patient has correct armband on for positive identification. Placed in gown. Bed in low rs5 position. Call light in reach. Side rails up X2. 18:25 No provider procedures requiring assistance completed. Patient did not have IV access rs5 during this emergency room visit. Administered Medications: 18:22 Drug: Boostrix Tdap IM 0.5 ml IM once; as a single dose Route: IM; Site: left deltoid; rs5 18:44 Follow up: Response: No adverse reaction rs5 18:30 Drug: Lidocaine Infiltration (1 %) 5 ml 5 ml Infiltration once; to bedside {Note: adm rs5 by provider to back of head .} Volume: 5 ml; Route: Infiltration; 18:44 Follow up: Response: No adverse reaction rs5 Medication: 18:48 VIS not applicable for this client. rs5 Outcome: 18:42 Discharge ordered by MD. rt 18:48 Patient left the ED. aa5 18:48 Discharged to home ambulatory, with family, rs5 18:48 Condition: stable 18:48 Discharge instructions given to patient, family, Instructed on discharge instructions, follow up and referral plans. Demonstrated understanding of instructions, follow-up care, Signatures: Dispatcher [employer] [facility] Ivone Queen RN RN aa5 Chato Fish MD MD rt Pa Banegas, RN RN rs5 Shireen Flores Clarissa RN RN cm10
--- NOTE | 2024-05-29 18:43 | EDPHYS ---
Physician Documentation [facility] Name: Nahomy Trevino Age: 44 yrs Sex: Female : 1980 Arrival Date: 05/29/2024 Time: 15:10 Bed 5 Private MD: ED Physician Chato Fish HPI: 05/29 20:25 This 44 yrs old Female presents to ER via Wheelchair with complaints of rt Dizziness, Head Injury Without LOC-Adult. 20:25 Patient presents to the ED with a slip and fall in the shower. Patient hit the back of rt her head, she was dizzy following this but denies loss of consciousness. Denies preceding symptoms. Denies other injury, other acute complaints, symptoms are moderate in severity, no other aggravating alleviating factors.. Historical: - Allergies: 15:25 No Known Allergies; cm10 - Home Meds: 15:25 None [Active]; cm10 - PMHx: 15:25 None; cm10 - PSHx: 15:25 None; cm10 - Immunization history:: Adult Immunizations up to date, Last tetanus immunization: unknown. - Infectious Disease History:: Denies. - Social history:: Smoking status: Patient denies any tobacco usage or history of. - Family history:: not pertinent. ROS: 20:25 Constitutional: Negative for fever, chills, and weight loss, Cardiovascular: Negative rt for chest pain, palpitations, and edema, Respiratory: Negative for shortness of breath, cough, wheezing, and pleuritic chest pain, Abdomen/GI: Negative for abdominal pain, nausea, vomiting, diarrhea, and constipation, 20:25 Skin: Positive for laceration(s), 20:25 Neuro: Positive for headache, Negative for loss of consciousness, Exam: 20:25 Constitutional: This is a well developed, well nourished patient who is awake, alert, rt and in no acute distress. Chest/axilla: Normal chest wall appearance and motion. Nontender with no deformity. No lesions are appreciated. Cardiovascular: Regular rate and rhythm with a normal S1 and S2. No gallops, murmurs, or rubs. Normal PMI, no JVD. No pulse deficits. Respiratory: Lungs have equal breath sounds bilaterally, clear to auscultation and percussion. No rales, rhonchi or wheezes noted. No increased work of breathing, no retractions or nasal flaring. Abdomen/GI: Soft, non-tender, with normal bowel sounds. No distension or tympany. No guarding or rebound. No evidence of tenderness throughout. Skin: Warm, dry with normal turgor. Normal color with no rashes, no lesions, and no evidence of cellulitis. MS/ Extremity: Pulses equal, no cyanosis. Neurovascular intact. Full, normal range of motion. Neuro: Awake and alert, GCS 15, oriented to person, place, time, and situation. Cranial nerves II-XII grossly intact. Motor strength 5/5 in all extremities. Sensory grossly intact. Cerebellar exam normal. Normal gait. 20:25 Head/face: 2 cm laceration to the posterior scalp, no active bleeding, no other signs of trauma. Vital Signs: 15:24 BP 127 / 87; Pulse 79; Resp 16; Temp 98.8(O); Pulse Ox 97% on R/A; Weight 56.7 kg; cm10 Height 5 ft. 1 in. ; Pain 10/10; 18:47 BP 128 / 80; Pulse 71; Resp 18; Pulse Ox 98% on R/A; rs5 15:24 Body Mass Index 23.62 (56.70 kg, 154.94 cm) cm10 15:24 Pain Scale: Adult cm10 Laceration: 20:25 Wound Repair of 2cm ( 0.8in ) subcutaneous laceration to scalp. Linear shaped.. Distal rt neuro/vascular/tendon intact. Anesthesia: Local anesthetic administered with 2 mls of 1% lidocaine. Wound prep: Copious irrigation. Skin closed with 2 1-0 [place] using staple gun. Patient tolerated well. MDM: 15:27 Patient medically screened. rt 20:25 Differential diagnosis: Intracranial hemorrhage, laceration, concussion. Data reviewed: rt vital signs, nurses notes, radiologic studies. I considered the following discharge prescriptions or medication management in the emergency department Medications were administered in the Emergency Department. See MAR. Independent interpretation of the following test(s) in the Emergency Department CT Scan: My interpretation is No intracranial hemorrhage seen on interpretation of CT scan images. Test considered but Not performed: Other Details Denies preceding symptoms, loss of consciousness, syncope, EKG, labs are not indicated. Counseling: I had a detailed discussion with the patient and/or guardian regarding the historical points, exam findings, and any diagnostic results supporting the discharge/admit diagnosis, radiology results, the need for outpatient follow up, to return to the emergency department if symptoms worsen or persist or if there are any questions or concerns that arise at home. Response to treatment: the patient's symptoms have markedly improved after treatment. 05/29 15:29 Order name: CT Head C Spine; Complete Time: 16:30 rt 05/29 15:29 Order name: Dressing - Wound; Complete Time: 18:43 rt 05/29 15:29 Order name: Wound Care; Complete Time: 18:43 rt Administered Medications: 18:22 Drug: Boostrix Tdap IM 0.5 ml IM once; as a single dose Route: IM; Site: left deltoid; rs5 18:44 Follow up: Response: No adverse reaction rs5 18:30 Drug: Lidocaine Infiltration (1 %) 5 ml 5 ml Infiltration once; to bedside {Note: adm rs5 by provider to back of head .} Volume: 5 ml; Route: Infiltration; 18:44 Follow up: Response: No adverse reaction rs5 Disposition Summary: 05/29/24 18:42 Discharge Ordered Notes: Location: Home rt Problem: new rt Symptoms: have improved rt Condition: Stable rt Diagnosis - Laceration without foreign body of scalp rt Followup: rt - With: Private Physician - When: 10 - 14 days - Reason: Staple/Suture removal Discharge Instructions: - Discharge Summary Sheet rt - Laceration Care, Adult rt Forms: - Medication Reconciliation Form rt - Antibiotic Education rt - Prescription Opioid Use rt - Patient Portal Instructions rt - Leadership Thank You Letter rt Signatures: Chato Fish MD MD rt Pa Banegas RN RN rs5 Jennifer Cordova RN RN cm10
[2024-05-29 19:11] VITALS: TEMP 98.8
[2024-05-29 19:12] VITALS: BP 128/80; O2SAT 98
== END 2024-05-29 18:48 | disposition home or self-care (01) ==
LOC: ER 15:10
PROC: 0HQ0XZZ Repair Scalp Skin, External Approach (ICD-10-PCS; principal; 2024-05-29)
DX: S01.01XA Laceration without foreign body of scalp, initial encounter (principal); W18.2XXA Fall in (into) shower or empty bathtub, initial encounter
CPT/HCPCS: 12001; 70450; 72125; 96372; 99284; J2001

== ENCOUNTER 2024-06-23 22:33 | Emergency (ER) | payer OTHER ==
--- OUTSIDE RECORDS SUMMARY | 2024-06-23 22:39 | XMS REPORT | Continuity of Care Document ---
Author Name Unknown Address [address] [facility] [place] [address] [facility] Address [address] [facility] [place] [address] Care Team Providers Care Mold Preparer Name Role Phone SCARLETT MATTA Primary Care Physician ABBEY Hahn Attending Clinician Unavailable MAYO BYRNES Attending Clinician Unavailable Mayo Byrnes MD Attending Clinician [phone] [email or web address] Attending Clinician UnavailAJITH Muse Attending Clinician Unavailable Alirio TRACK SERVICE PERSONAjith Attending Clinician [phone] Doctor Unassigned, [place] Attending Clinician U Jackelyn Elam Attending Clinician Unavailable Jackelyn Jacome Attending Clinician [phone] Celina NAVAS, Minna Barakat Attending Clinician UnavailMAGGIE Rawls Attending Clinician Unavailable ABBEY TAVERA Admitting Clinician Unavailable [email or web address]_S Admitting Clinician UnavailJackelyn Echevarria Admitting Clinician Unavailable Payers Payer Name Policy Type Policy Number Effective Date Expirati on Date Source VANCE Cervantes/ GALEN HO [id number] 2023 00:00:00 [employer] [place] [id number] 2021 00:00:00 Problems Condition Name Condition Details Condition Category Status Onset Date Resolution Date Last Treatment Date Treating Clinician Comments Source Pap smear of cervix unsatisfac tory Pap smear of cervix unsatisfac tory Disease Active 11-20 00:00: 00 Overview: Formattin g of this note might be different from the original. No ECC on pap; Repeat pap postpartu m [facility] Urinary frequency Urinary frequency Disease Active 11-09 00:00: 00 [facility] Encounter for insertion or removal of intrauteri ne contracept jayson device Encounter for insertion or removal of intrauteri ne contracept jayson device Disease Active 03-07 00:00: 00 Overview: Formattin g of this note might be different from the original. Inserted 2012 [facility] Dysuria Dysuria Disease Resolve d 01-24 00:00: 00 2013-11-09 00:00:00 2013-11-09 10:41:48 [facility] Allergies, Adverse Reactions, Alerts Allergy Name Allergy Type Status Severity Reaction(s) Onset Date Inactive Date Treating Clinician Comments Source NO KNOWN ALLERGIE S Drug Class Active [facility] Social History Social Habit Start Date Stop Date Quantity Comments [facility] Alcohol Frequency [facility] History SDOH Alcohol Std Drinks [facility] History SDOH Alcohol Binge [facility] History of Social function 2024-04-26 00:00:00 2024-04-26 00:00:00 [facility] Alcoholic beverage intake 2024-04-26 00:00:00 2024-04-26 00:00:00 Current drinker of alcohol (finding) [facility] Alcohol intake 2024-02-04 00:00:00 2024-02-04 00:00:00 Current drinker of alcohol (finding) [facility] Exposure to SARS-CoV-2 (event) 2022-08-06 00:00:00 2022-08-16 22:36:[address] [facility] Tobacco use and exposure 2013-11-09 00:00:00 2013-11-09 00:00:00 Smokeless tobacco non-user [facility] Alcohol Comment 2013-11-09 00:00:00 2013-11-09 00:00:[address] [facility] Sex assigned at 1980 00:00:00 1980 00:00:00 [facility] Smoking Status Start Date Stop Date Source Never smoked tobacco [facility] Medications Ordered Medication Name Filled Medication Name [...] Site: HEENT, Duration of therapy: Once (ED) [facility] ibuprofen (IBU) tablet 600 mg 04-26 23:30: 00 04-26 22:50 :00 No 600mg 600 mg, Oral, ONCE, 1 dose, On Wed04/26/24 at 1830, HECTOR [facility] acetaminoph en (TYLENOL) tablet 650 mg 04-26 23:30: 00 04-26 22:50 :00 No 650mg 650 mg, Oral, ONCE, 1 dose, On Wed04/26/24 at 1830, HECTOR [facility] ibuprofen 800 mg tablet 04-26 00:00: 00 Yes [id number] 800mg Take 1 tablet by mouth every 6 (six) hours as needed for Pain (scale 4-6) or Temp > 38.5 C. [facility] albuterol 90 mcg/actuati on inhaler 04-26 00:00: 00 Yes [id number] 2{puff} Inhale 2 Puffs every 4 (four) hours as needed for Wheezing or Shortness of Breath. [facility] bromphenira mine-pseudo ephedrine-D M (BROMFED DM) 2-30-10 mg/5 mL syrup 04-26 00:00: 00 Yes [id number] 5mL Take 5 mL by mouth 4 (four) times daily as needed for Congestion /Allergies . [facility] dexamethaso ne sod phos PF injection 10 mg 02-03 22:30: 00 02-03 22:26 :00 No 10mg 10 mg, Oral, ONCE, 1 dose, On Wed02/04/24 at 1730, 1 mL [facility] amoxicillin 500 mg capsule 02-03 00:00: 00 02-11 04:59 :00 No [id number] 500mg Take 1 capsule by mouth in the morning and 1 capsule in the evening. Do all this for 7 days. [facility] methylPREDN ISolone 4 mg tablets 2021-10 00:00: 00 Yes [id number] Take by mouth SEE-INSTRU CTIONS. follow package directions [facility] benzonatate 100 mg capsule 2021-10 00:00: 00 Yes [id number] 100mg Take 1 capsule by mouth 3 (three) times daily as needed for Cough. [facility] ketorolac (TORADOL) injection 15 mg 05-04 04:30: 00 05-04 03:29 :00 No 15mg 15 mg, Slow IV Push, ONCE, 1 dose, On 05/03/22 at 2330, HECTOR [facility] NaCl 0.9% (NS) bolus infusion 1,000 mL 05-04 02:15: 00 05-04 02:51 :00 No 1000mL at 999 mL/hr, 1,000 mL, IV Infusion, ONCE, 1 dose, On Wed05/03/22 at 2115, STAT [facility] acetaminoph en (TYLENOL) tablet 1,000 mg 05-04 02:15: 00 05-04 02:30 :00 No 1000mg 1,000 mg, Oral, ONCE, 1 dose, On 05/03/22 at 2115, HECTOR [facility] levoFLOXaci n in D5W (LEVAQUIN) 500 mg/100 mL Piggyback 500 mg 05-04 02:15: 00 05-04 03:27 :00 No 500mg 500 mg, IV Piggyback, ONCE, 1 dose, On Wed05/03/22 at 2115, Administer over 60 Minutes, 100 mL
Reas on for Anti-Infec tive: Documented Infection< br>Documen sabrina Infection Site: Abdominal< br>Duratio n of Therapy: 7 days [facility] iopamidol (ISOVUE 370-500 mL) injection 65 mL 05-04 00:48: 00 05-04 01:00 :00 No [id number] 65mL 65 mL, Intravenou s, ONCE, 1 dose, On Wed05/03/22 at 2000, Routine [facility] NaCl 0.9% (NS) bolus infusion 1,000 mL 05-04 00:15: 00 05-04 01:46 :00 No 1000mL at 999 mL/hr, 1,000 mL, IV Infusion, ONCE, 1 dose, On Wed05/03/22 at 1915, STAT [facility] ondansetron (ZOFRAN (PF)) injection 4 mg 05-04 00:15: 00 05-03 23:31 :00 No 4mg 4 mg, Slow IV Push, ONCE, 1 dose, On Wed05/03/22 at 1915, HECTOR [facility] ondansetron 4 mg disintegrat ing tablet 05-03 00:00: 00 Yes [id number] 4mg Take 1 tablet by mouth every 8 (eight) hours as needed for Nausea and Vomiting (N/V). [facility] ibuprofen 600 mg tablet 05-03 00:00: 00 08-17 00:00 :00 No [id number] 600mg Take 1 tablet by mouth every 6 (six) hours as needed for Pain (scale 4-6). [facility] levoFLOXaci n (LEVAQUIN) 750 mg tablet 05-03 00:00: 05-11 04:59 :00 No [id number] 750mg Take 1 tablet by mouth every 24 (twenty-fo ur) hours for 7 days. [facility] benzonatate 100 mg capsule 10-20 00:00: 00 08-17 00:00 :00 No [id number] 100mg Take 1 capsule by mouth 3 (three) times daily as needed for Cough. [facility] ondansetron (ZOFRAN) 4 mg tablet 10-20 00:00: 00 08-17 00:00 :00 No [id number] 4mg Take 1 tablet by mouth every 8 (eight) hours as needed for Nausea and Vomiting (N/V) for up to 15 doses. [facility] ibuprofen 600 mg tablet 10-20 00:00: 00 11-20 05:59 :00 No [id number] 600mg Take 1 tablet by mouth every 6 (six) hours as needed for Pain (scale 4-6) for up to 30 days. [facility] Immunizations Ordered Immunization Name Filled Immunization Name Date Status Comments Source TDAP 2011-04-30 00:00:[address] [facility] TDAP 2011-04-30 00:00:[address] [facility] TDAP 2011-04-30 00:00:[address] [facility] TDAP 2011-04-30 00:00:[address] [facility] TDAP Unknown Completed [facility] TDAP Unknown Completed [facility] Vital Signs Vital Name Observation Time Observation Value Comments S ource Systolic blood pressure 2024-04-26 22:35:00 125 mm[Hg] [facility] Diastolic blood pressure 2024-04-26 22:35:00 89 mm[Hg] [facility] Heart rate 2024-04-26 22:35:00 86 /min [facility] Body temperature 2024-04-26 22:35:[address] [facility] Respiratory rate 2024-04-26 22:35:00 16 /min [facility] Body height 2024-04-26 22:35:[address] [facility] Body weight 2024-04-26 22:35:[address] [facility] BMI 2024-04-26 22:35:00 24.69 kg/m2 [facility] Oxygen saturation in Arterial blood by Pulse oximetry 2024-04-26 22:35:00 98 /min [facility] Systolic blood pressure 2024-02-04 21:27:00 121 mm[Hg] [facility] Diastolic blood pressure 2024-02-04 21:27:00 83 mm[Hg] [facility] Heart rate 2024-02-04 21:27:00 63 /min [facility] Body temperature 2024-02-04 21:27:[address] [facility] Respiratory rate 2024-02-04 21:27:00 16 /min [facility] Body height 2024-02-04 21:27:[address] [facility] Body weight 2024-02-04 21:27:[address] [facility] BMI 2024-02-04 21:27:00 25.51 kg/m2 [facility] Oxygen saturation in Arterial blood by Pulse oximetry 2024-02-04 21:27:00 100 /min [facility] Body weight 2022-08-17 03:39:[address] [facility] BMI 2022-08-17 03:39:00 25.51 kg/m2 [facility] Oxygen saturation in Arterial blood by Pulse oximetry 2022-08-17 03:39:00 98 /min [facility] Systolic blood pressure 2022-08-17 03:39:00 135 mm[Hg] [facility] Diastolic blood pressure 2022-08-17 03:39:00 92 mm[Hg] [facility] Heart rate 2022-08-17 03:39:00 78 /min [facility] Body temperature 2022-08-17 03:39:[address] [facility] Respiratory rate 2022-08-17 03:39:00 18 /min [facility] Body height 2022-08-17 03:39:[address] [facility] Systolic blood pressure 2022-05-04 04:58:00 93 mm[Hg] erp aware, pt asymptomatic, stable for DC [facility] Diastolic blood pressure 2022-05-04 04:58:00 57 mm[Hg] erp aware, pt asymptomatic, stable for DC [facility] Heart rate 2022-05-04 04:58:00 83 /min [facility] Respiratory rate 2022-05-04 04:58:00 18 /min [facility] Oxygen saturation in Arterial blood by Pulse oximetry 2022-05-04 04:58:00 98 /min [facility] Body temperature 2022-05-03 22:49:[address] [facility] Body height 2022-05-03 22:49:[address] [facility] Body weight 2022-05-03 22:49:[address] [facility] BMI 2022-05-03 22:49:00 24.75 kg/m2 [facility] Procedures Procedure Date / Time Performed Performing Clinician Source RAPID STREP SCREEN FOR GROUP A 2024-04-26 22:49:[address] [facility] INFLUENZA A/B RSV COVID NAAT 2024-04-26 22:49:[address] [facility] XR CHEST 1 VW 2024-04-26 22:48:22 Abbey Tavera [facility] URINALYSIS 2024-04-26 22:47:00 [facility] RAPID STREP SCREEN FOR GROUP A 2024-02-04 21:31:[address] [facility] RAPID STREP SCREEN FOR GROUP A 2022-08-17 03:59:[address] [facility] RAPID INFLUENZA A/B 2022-08-17 03:59:[address] [facility] COVID-19 (ID NOW RAPID TESTING) 2022-08-17 03:59:[address] [facility] NOTICE OF PRIVACY PRACTICES 2022-08-17 03:29:05 Doctor Unassigned, [place] [facility] CONSENT/REFUSAL FOR DIAGNOSIS AND TREATMENT 2022-08-17 03:28:50 Doctor Unassigned, [place] [facility] URINE DRUG (IMMUNOASSAY) - COMPREHENSIVE DRUG SCREEN 2022-05-04 02:51:[address] [facility] COVID-19 (ID NOW RAPID TESTING) 2022-05-04 01:18:[address] [facility] CT ABDOMEN PELVIS W CONTRAST 2022-05-04 00:49:[address] [facility] POCT TEST 2022-05-03 23:40:[address] [facility] LIPASE 2022-05-03 23:29:00 Jackelyn Morales [facility] MAGNESIUM 2022-05-03 23:29:00 Jackelyn Morales [facility] COMP. METABOLIC PANEL ([id number]) 2022-05-03 23:29:[address] [facility] CBC WITH DIFF 2022-05-03 23:29:00 [facility] 2022-05-03 23:29:00 Jackelyn Morales [facility] CONSENT/REFUSAL FOR DIAGNOSIS AND TREATMENT 2022-05-03 22:32:55 Doctor Unassigned, [place] [facility] Encounters Start Date/Time End Date/Time Encounter Type Admission Type Attending [facility] Care Facility Care Department Encounter ID Source 2024-04-26 17:36:00 2024-04-26 19:47:00 Emergency X ABBEY TAVERA [facility] ERT [id number] [facility] 2024-04-26 17:36:00 2024-04-26 19:47:00 Abbey Duke [facility] [id number] [id number] [id number] [facility] 2024-02-04 16:29:00 2024-02-04 18:10:00 Emergency X MAYO BYRNES [facility] ERT [id number] [facility] 2024-02-04 16:29:00 2024-02-04 18:10:00 Emergency Mayo Byrnes C [facility] [id number] [id number] [id number] [facility] 2023-11-29 00:00:00 2023-11-29 00:00:00 Outpatient GC_GCBZW_Ka diyala_S PRIV PRIV [id number] [facility] 2023-08-17 00:00:00 2023-08-17 00:00:00 Outpatient GC_GCBZW_Ka diyala_S PRIV PRIV [id number] [facility] 2022-08-16 22:43:00 2022-08-17 00:22:00 Emergency X JOSERALPH UNDERWOODALA [facility] ERT [id number] [facility] 2022-08-16 22:43:00 2022-08-17 00:22:00 Emergency Alirio Ajith G [facility] [id number] [id number] [id number] [facility] 2022-08-16 00:00:00 2022-08-16 00:00:00 Orders Only Doctor Unassigned, [place] [facility] [id number] 350.1.13.10 4.2.7.2.686 [id number] [facility] 2022-05-03 17:51:00 2022-05-04 00:44:00 Emergency X Jackelyn MORALES [facility] ERT [id number] [facility] 2022-05-03 17:51:00 2022-05-04 00:44:00 Emergency Jackelyn Morales [facility] [id number] [id number] [id number] [id number] [facility] 2021-10-21 00:00:00 2021-10-21 00:00:00 Letter (Out) Minna Patrick [facility] [id number] [id number] [id number] [id number] [facility] 2021-10-20 18:56:00 2021-10-20 19:52:00 Emergency X MAGGIE TUCKER [facility] ERT [id number] [facility] Results Test Description Test Time Test Comments [...] lesions or acute osseous findings are detected. [facility] Notes Date/Time Note Provider Source 2024-04-26 19:45:38 Pt dc'd home ambulatory. Pt v/u of dc instructions. Raina Alves RN [facility] 2024-04-26 17:29:00 Patient states: "My daughter had covid. Last night I was feeling sick. I've been sneezing, coughing, congested. My head is throbbing. I didn't check my temperature I just feel hot. Nothing taken for headache." Amee Liang RN [facility] 2024-04-26 17:27:37 Called 2x no answer Catrina Franklin RN [facility] 2024-02-04 17:30:03 Patient dc home. Follow up with pcp. Take rx as prescribed. Verbalized understanding. Signed paper work. Glen Arnold RN [facility] 2024-02-04 16:26:48 Patient states: "I have a sore throat. It just started yesterday. My daughter has strep and I have been around her" Loraine Simms RN [facility] 2024-02-04 16:18:00 [facility] Emergency Department Note Demographics Patient Name: Citlali Shepherd Date of : 1980 43 year old Treatment Room: [facility] ED [facility] Primary Care Physician: Scarlett Matta [facility] Patient Escorted by: Self [9] Mode of [...] cultures. Start amoxicillin Diagnosis/Impression as of 02/04/24 5827 Sore throat Case discussed with: none Barriers [...] obvious discrepancies. Mayo Byrnes MD, FACEP, FAAEM Project Development Coordinator of Emergency and Internal Medicine [facility], [facility] #[id number] Mayo Byrnes MD 02/04/24 4120 [facility]
--- NOTE | 2024-06-23 22:53 | ER ---
Nurse's Notes [facility] Name: Nahomy Trevino Age: 44 yrs Sex: Female : 1980 Arrival Date: 06/23/2024 Time: 22:33 Bed IW1 Private MD: Diagnosis: Encounter for removal of sutures-maddie Presentation: 06/23 22:45 Chief complaint: Patient states: Here to have maddie removed from head. Pt reports she ss had 2 maddie placed to head 3 weeks ago. Coronavirus screen: Client denies travel out of the [place] in the last 14 days. Ebola Screen: Patient denies exposure to infectious person. Patient denies travel to an Ebola-affected area in the 21 days before illness onset. Initial Sepsis Screen: Does the patient meet any 2 criteria? No. Patient's initial sepsis screen is negative. Does the patient have a suspected source of infection? No. Patient's initial sepsis screen is negative. Risk Assessment: Do you want to hurt yourself or someone else? Patient reports no desire to harm self or others. Onset of symptoms was May 2024. 22:45 Method Of Arrival: Ambulatory ss 22:45 Acuity: MARK 5 ss Historical: - Allergies: 22:47 No Known Allergies; ss Screenin:47 [facility] ED Fall Risk Assessment (Adult) History of falling in the last 3 months, ss including since admission No falls in past 3 months (0 pts). Abuse screen: Denies threats or abuse. Denies injuries from another. Nutritional screening: No deficits noted. Tuberculosis screening: Never had TB. Assessment: 22:47 General: Appears in no apparent distress. comfortable, Behavior is calm, cooperative. ss Neuro: Level of Consciousness is awake, alert, obeys commands. Respiratory: Airway is patent Respiratory effort is even, unlabored, Respiratory pattern is regular, symmetrical. Derm: Skin is intact, is healthy with good turgor, Skin is pink, warm \T\ dry. normal. Vital Signs: 22:45 BP 146 / 107; Pulse 88; Resp 16; Temp 97.9(TE); Pulse Ox 100% on R/A; Pain 0/10; ss 22:45 Pain Scale: Adult ss ED Course: 22:36 Patient arrived in ED. mr 22:37 Brown, Makenna, PA-C is PHCP. sb4 22:37 Lexx Ferreira MD is Attending Physician. sb4 22:47 Triage completed. ss 22:47 Arm band placed on right wrist. ss 22:47 Patient has correct armband on for positive identification. ss 22:47 Patient did not have IV access during this emergency room visit. ss 22:55 Alla Moya, RN is Primary Nurse. ss 22:55 No provider procedures requiring assistance completed. Removal of Removed maddie from right side of the back of head Maddie site is well healed Patient tolerated well. Administered Medications: No medications were administered Medication: 22:47 VIS not applicable for this client. ss Outcome: 22:52 Discharge ordered by MD. sb4 22:55 Discharged to home ambulatory, ss 22:55 Condition: good 22:55 Discharge instructions given to patient, Instructed on discharge instructions, follow up and referral plans. Demonstrated understanding of instructions, follow-up care, 22:57 Patient left the ED. Signatures: Jeanine Duncan, Reg Reg mr Alla Moya, RN RN Makenna Chan PA-C PA-C sb4
--- NOTE | 2024-06-23 22:53 | EDPHYS ---
Physician Documentation [facility] Name: Nahomy Trevino Age: 44 yrs Sex: Female : 1980 Arrival Date: 06/23/2024 Time: 22:33 Bed IW1 Private MD: ED Physician Lexx Ferreira HPI: 06/23 22:53 This 44 yrs old Female presents to ER via Ambulatory with complaints of Staple sb4 Removal. 22:53 The patient has The patient has tigist on the right side of the back of head. sb4 22:53 Previous treatment: The patient was initially treated 25 day(s) ago, the care was sb4 rendered at [facility], Treatment type: The patient's original treatment included tigist. Sutures/tigist progress: The patient has no c/o's. The wound is well-healing with no redness, swelling, discharge, or dehiscence reported. The patient has not experienced similar symptoms in the past. The patient has not recently seen a physician. Historical: - Allergies: 22:47 No Known Allergies; ss ROS: 22:53 Constitutional: Negative for fever, chills, and weight loss, sb4 22:53 Skin: Positive for laceration(s), 22:53 All other systems are negative, Exam: 22:53 Constitutional: This is a well developed, well nourished patient who is awake, alert, sb4 and in no acute distress. 22:53 Skin: Wound recheck: Staple laceration closure: the wound is healing well, the edges are well approximated, Vital Signs: 22:45 BP 146 / 107; Pulse 88; Resp 16; Temp 97.9(TE); Pulse Ox 100% on R/A; Pain 0/10; ss 22:45 Pain Scale: Adult ss Procedures: 22:53 Suture/Staple removal: Removed 2 tigist, from right side of the back of head, site sb4 appears well healed, dressed with none. Patient tolerated well. MDM: 22:37 Patient medically screened. sb4 22:55 Data reviewed: vital signs, nurses notes, and as a result, I will discharge patient. sb4 Counseling: I had a detailed discussion with the patient and/or guardian regarding the historical points, exam findings, and any diagnostic results supporting the discharge/admit diagnosis, to return to the emergency department if symptoms worsen or persist or if there are any questions or concerns that arise at home. Administered Medications: No medications were administered Disposition: 06/24 03:21 Co-signature as Attending Physician, Lexx Ferreira MD I agree with the assessment sp4 and plan of care. I reviewed the patient's care provided by the Advanced Practice Provider and agree with the diagnosis and treatment plan. Disposition Summary: 06/23/24 22:52 Discharge Ordered Notes: Location: Home sb4 Problem: new sb4 Symptoms: have improved sb4 Condition: Stable sb4 Diagnosis - Encounter for removal of sutures - tigist sb4 Followup: sb4 - With: Private Physician - When: As needed - Reason: Recheck today's complaints, Re-evaluation by your physician Forms: - Medication Reconciliation Form sb4 - Antibiotic Education sb4 - Prescription Opioid Use sb4 - Patient Portal Instructions sb4 - Leadership Thank You Letter sb4 Signatures: Alla Moya RN RN Makenna Rodriguez PA-C PA-C sb4 Lxex Ferreira MD MD sp4 Corrections: (The following items were deleted from the chart) 06/23 22:54 22:53 The patient has sb4 sb4 22:54 22:53 Skin: Wound recheck: Staple laceration closure: the wound is healing well, the sb4 edges are well approximated, sb4
[2024-06-23 23:40] VITALS: BP 146/107; TEMP 97.9; O2SAT 100
== END 2024-06-23 22:57 | disposition home or self-care (01) ==
LOC: ER 22:33
DX: Z48.02 Encounter for removal of sutures (principal)
CPT/HCPCS: 99281; 99283